=== PATIENT | male | born 1980 | race Hispanic/Latino ===

== ENCOUNTER 2024-06-23 01:09 | Emergency (ER) | payer OTHER ==
[2024-06-23] MEDS ORDERED: Ibuprofen 200 MG TAB ONE (01:27)
== END 2024-06-23 01:42 | disposition home or self-care (01) ==
LOC: ERS 01:09
DX: H60.92 Unspecified otitis externa, left ear (principal); H73.92 Unspecified disorder of tympanic membrane, left ear
CPT/HCPCS: 99282